=== PATIENT | female | born 1995 | race Caucasian/White ===

== ENCOUNTER 2021-03-24 22:13 | Emergency (ER) | payer OTHER, BC ==
[2021-03-24] MEDS ORDERED: Metoclopramide 10 MG Tab PO ONE (22:40)
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
== END 2021-03-24 23:06 | disposition home or self-care (01) ==
LOC: JP.ED 22:13
DX: M25.562 Pain in left knee (principal); E11.9 Type 2 diabetes mellitus without complications; Z79.84 Long term (current) use of oral hypoglycemic drugs; Z79.899 Other long term (current) drug therapy; V49.10XA Passenger injured in collision with unspecified motor vehicles in nontraffic accident, initial encounter; Y92.410 Unspecified street and highway as the place of occurrence of the external cause
CPT/HCPCS: 99284